=== PATIENT | male | born 1980 | race Hispanic/Latino ===

== ENCOUNTER 2018-08-09 02:53 | Emergency (ER) | payer MEDICARE ==
[2018-08-09 03:07] VITALS: BP 152/64
--- NOTE | 2018-08-09 04:10 | Emergency Department Report ---
ED Male HPI - General Chief complaint: Urogenital-Male Stated complaint: INFECTION Time Seen by Provider: 08/09/18 04:05 Source: patient Mode of arrival: Ambulatory Limitations: No Limitations - History of Present Illness Initial comments: Patient presents for a tinea groin history of diabetes Accu-Chek 184 patient denies penile discharge no swelling no abdominal pain no nausea vomiting no fever MD Complaint: other (rash "i have fungal infection and left my medication at home") -: Gradual Radiation: none Severity: moderate Severity scale (0 -10): 2 Quality: other (itching burning ) Consistency: intermittent Improves with: none Worsens with: other (hot shower ) new medication rash - Related Data Sexually active: No Previous Rx's Medication Instructions Recorded Last Taken Type Fluconazole [Diflucan TAB] 150 mg PO Q3D #3 tablet 08/09/18 Unknown Rx Terbinafine HCl [Antifungal] 1 applicatio TP BID 14 Days #30 gm 08/09/18 Unknown Rx Allergies Allergy/AdvReac Type Severity Reaction Status Date / Time methimazole [From Tapazole] Allergy Hives Verified 08/09/18 03:06 paroxetine [From Paxil] Allergy Anaphylaxis Verified 08/09/18 03:06 sulfamethoxazole Allergy Hives Verified 08/09/18 03:06 [From Bactrim] trimethoprim [From Bactrim] Allergy Hives Verified 08/09/18 03:06 ziprasidone [From Geodon] Allergy Anaphylaxis Verified 08/09/18 03:06 ED Review of Systems ROS: Stated complaint: INFECTION Other details as noted in HPI Constitutional: denies: chills, fever Eyes: denies: eye pain, eye discharge, vision change ENT: denies: ear pain, throat pain Respiratory: denies: cough, shortness of breath, wheezing Cardiovascular: denies: chest pain, palpitations Endocrine: no symptoms reported Gastrointestinal: denies: abdominal pain, nausea, diarrhea Genitourinary: denies: urgency, dysuria Musculoskeletal: denies: back pain, joint swelling, arthralgia Skin: rash. denies: change in color, change in hair/nails Neurological: denies: headache, weakness, paresthesias Psychiatric: denies: anxiety, depression Hematological/Lymphatic: as per HPI ED Past Medical Hx - Past Medical History Previous Medical History?: Yes Hx Hypertension: Yes Hx Diabetes: Yes Hx Arthritis: Yes Additional medical history: MRSA - Surgical History Past Surgical History?: Yes Additional Surgical History: tonsilectomy - Social History Smoking Status: Former Smoker Substance Use Type: None - Medications Home Medications: Home Medications Medication Instructions Recorded Confirmed Last Taken Type Fluconazole [Diflucan TAB] 150 mg PO Q3D #3 tablet 08/09/18 Unknown Rx Terbinafine HCl [Antifungal] 1 applicatio TP BID 14 Days #30 gm 08/09/18 Unknown Rx ED Physical Exam - General Limitations: No Limitations General appearance: alert, in no apparent distress - Head Head exam: Present: atraumatic, normocephalic - Eye Eye exam: Present: normal appearance - ENT ENT exam: Present: mucous membranes moist - Neck Neck exam: Present: normal inspection - Respiratory Respiratory exam: Present: normal lung sounds bilaterally. Absent: respiratory distress - GI/Abdominal GI/Abdominal exam: Present: soft, normal bowel sounds - Rectal Rectal exam: Present: deferred - Extremities Exam Extremities exam: Present: normal inspection - Back Exam Back exam: Present: normal inspection - Neurological Exam Neurological exam: Present: alert, oriented X3, CN II-XII intact, normal gait - Psychiatric Psychiatric exam: Present: normal affect, normal mood - Skin Skin exam: Present: rash (smooth erythem pruritis no fever no weeping ) ED Course Vital Signs 08/09/18 03:03 Temperature 99.0 F Pulse Rate 100 H Respiratory 14 Rate Blood Pressure 152/64 O2 Sat by Pulse 95 Oximetry ED Medical Decision Making - Medical Decision Making This is tinea cruris we'll treat for same Diflucan Lamisil jock itch patient will follow up PCP in 2-3 days Patient patient verbalizes understanding and agreement with same patient was DC 'd home in stable condition at this time Critical care attestation.: If time is entered above; I have spent that time in minutes in the direct care of this critically ill patient, excluding procedure time. ED Disposition Clinical Impression: Tinea cruris, Lydia infection Disposition: DC-01 TO HOME OR SELFCARE Is pt being admited?: No Does the pt Need Aspirin: No Condition: Good Instructions: Jock Itch (ED), Terbinafine (On the skin) Prescriptions: Fluconazole [Diflucan TAB] 150 mg PO Q3D #3 tablet Terbinafine HCl [Antifungal] 1 applicatio TP BID 14 Days #30 gm Referrals: PRIMARY CARE, [Primary Care Provider] - 3-5 Days Forms: Work/School Release Form(ED) Time of Disposition: 04:18
[2018-08-09] MEDS ORDERED: DIFLUCAN PO ONE (04:20)
== END 2018-08-09 05:21 | disposition home or self-care (01) ==
LOC: ED 02:53
DX: B35.6 Tinea cruris (principal); I10 Essential (primary) hypertension; E11.9 Type 2 diabetes mellitus without complications; M19.90 Unspecified osteoarthritis, unspecified site; Z90.89 Acquired absence of other organs; Z88.2 Allergy status to sulfonamides; Z88.5 Allergy status to narcotic agent; Z87.891 Personal history of nicotine dependence
CPT/HCPCS: 99282